=== PATIENT | male | born 1960 | race Caucasian/White ===

== ENCOUNTER 2018-05-21 13:56 | Inpatient (IN) | payer BC, OTHER ==
[2018-05-21] MEDS ORDERED: guaiFENesin SYRUP 100MG/5ML 200 MG/10 ML CUP PO PRN (18:51)
[2018-05-21] MEDS ORDERED: ONDANSETRON 4 MG/2 ML VIAL IVP PRN (18:53)
[2018-05-21] MEDS: BUDESONIDE 0.5 MG/2 ML NEBU INHALATION SCH (19:16)
[2018-05-21] MEDS: IPRATROPIUM-ALBUTEROL 3 ML NEB INHALATION SCH (19:16)
[2018-05-21] MEDS: APIXABAN 5 MG TAB PO SCH ×2 (22:07→22:19)
[2018-05-21] MEDS: METOPROLOL TARTRATE 50 MG TAB PO SCH (22:17)
[2018-05-21] MEDS: BENZONATATE 100 MG CAP PO SCH (22:17)
[2018-05-21] MEDS: MELATONIN 3 MG TABLET PO SCH (22:17)
[2018-05-21] MEDS: AMIODARONE 200 MG TAB PO SCH (22:17)
[2018-05-21] MEDS: NYSTATIN 100,000 UNIT/GM POWD 15 GM TOPICAL SCH (22:19)
[2018-05-21] MEDS: BENZOCAINE/MENTHOL LOZENG 1 EACH LOZENGE MUCOUS MEM PRN (22:20)
[2018-05-21] MEDS: HYDROcodone/APAP 10-325MG 1 EACH TAB PO PRN (22:25)
[2018-05-22] MEDS: APIXABAN 5 MG TAB PO SCH ×3 (04:08→21:28)
[2018-05-22 06:36] LABS: Anion Gap 6 mmol/L; Blood Urea Nitrogen 27 mg/dL (9-20); Calcium 9.3 mg/dL (8.4-10.2); Carbon Dioxide 24 mmol/L (22-30); Chloride 106 mmol/L (98-107); Glucose 92 mg/dL (74-99); Potassium 4.7 mmol/L (3.5-5.1); Sodium 136 mmol/L (137-145)
--- NOTE | 2018-05-22 07:47 | P.HPIM ---
History of Present Illness H&P Date: 05/22/18 Chief Complaint: Syncope with dyspnea. This is a history of physical 57-year-old white male with history of atrial fibrillation with rapid ventricular response. He has history of multiple episodes of syncope several weeks ago. He was admitted for rate control. He's been compliant with most of his medications. He was restarted on amiodarone and was pending discharge when he had a long episode of ventricular tachycardia which has been now paroxysmal. Unfortunate, they have been unable to correct his rate and he is now going to be admitted for probable AICD placement. The patient is otherwise stable. He does have element of urinary retention and UTI and has been on Cipro. No fever or chills. No significant nausea, vomiting or diarrhea stated. No element of diaphoresis is noted. The patient is a former smoker and has element of BPH. Review of Systems Constitutional: Reports fatigue, Denies chills, Denies fever Eyes: denies blurred vision, denies pain Ears, nose, mouth and throat: Denies headache, Denies sore throat Cardiovascular: Reports as per HPI, Reports rapid heart beat Gastrointestinal: Denies abdominal pain, Denies diarrhea, Denies nausea, Denies vomiting Musculoskeletal: Denies myalgias Integumentary: Denies pruritus, Denies rash Neurological: Denies numbness, Denies weakness Endocrine: Denies fatigue, Denies weight change Past Medical History Past Medical History: Atrial Fibrillation, Cancer, Heart Failure, COPD, Hypertension, Osteoarthritis (OA), Prostate Disorder, Sleep Apnea/CPAP/BIPAP, Syncope Additional Past Medical History / Comment(s): 05/21/18 pt wants flu vaccine before going home. pt stated has had a pne vaccine in past but not sure of the date. past episode v-tach, hx rt broken arm-casted. hx prostate cancer- radiation tx,"tremors in hands". History of Any Multi-Drug Resistant Organisms: None Reported Past Surgical History: Heart Catheterization, Hernia Repair, Tonsillectomy Additional Past Surgical History / Comment(s): gopal inguinal hernia repair, cardioversion, prostate bx Past Anesthesia/Blood Transfusion Reactions: No Reported Reaction Past Psychological History: No Psychological Hx Reported Additional Psychological History / Comment(s): lives with . no home care , hasa 02 2 liters n/c, neb, waiting on cpap machine. Smoking Status: Former smoker Past Alcohol Use History: None Reported Additional Past Alcohol Use History / Comment(s): started smoking age 13(1973) quit 2004. smoked 1 ppd Past Drug Use History: None Reported - Past Family History Mother Family Medical History: Cancer Additional Family Medical History / Comment(s): lung /brain Father Family Medical History: Cancer Additional Family Medical History / Comment(s): lung Medications and Allergies Home Medications Medication Instructions Recorded Confirmed Type Albuterol Sulfate [Proair Hfa] 1 - 2 puff INHALATION RT-QID PRN 05/21/18 History Apixaban [Eliquis] 5 mg PO BID 05/21/18 05/21/18 History Budesonide [Pulmicort] 0.5 mg INHALATION RT-BID 05/21/18 05/21/18 History Budesonide/Formoterol Fumarate 2 puff INHALATION RT-BID 05/21/18 05/21/18 History [Symbicort 160-4.5 Mcg Inhaler] Doxazosin Mesylate [Cardura] 8 mg PO DAILY 05/21/18 05/21/18 History Furosemide [Lasix] 40 mg PO BID 05/21/18 05/21/18 History HYDROcodone/APAP 10-325MG [[place] 1 tab PO Q6H PRN 05/21/18 05/21/18 History 10-325] Ipratropium-Albuterol Nebulize 3 ml INHALATION RT-QID PRN 05/21/18 05/21/18 History [Duoneb 0.5 mg-3 mg/3 ml Soln] Lisinopril [Zestril] 5 mg PO DAILY 05/21/18 05/21/18 History Melatonin 6 mg PO HS 05/21/18 05/21/18 History Metoprolol Tartrate [Lopressor] 25 mg PO DAILY 05/21/18 05/21/18 History Potassium Chloride ER [K-Dur 20] 20 meq PO DAILY 05/21/18 05/21/18 History Primidone [Mysoline] 50 mg PO BID 05/21/18 05/21/18 History Tamsulosin HCl [Flomax] 0.4 mg PO HS 05/21/18 05/21/18 History Allergies Allergy/AdvReac Type Severity Reaction Status Date / Time No Known Allergies Allergy Verified 05/21/18 19:50 Physical Exam Vitals: Vital Signs Temp Pulse Pulse Resp BP BP Pulse Ox 05/22/18 03:47 97.8 F 63 18 100/75 94 L 05/22/18 00:00 97.9 F 70 18 104/54 95 05/21/18 20:00 98.4 F 72 18 101/61 94 L 05/21/18 19:30 75 05/21/18 19:16 72 05/21/18 16:15 96.3 F L 95 18 107/61 93 L Intake and Output 05/21/18 05/22/18 05/22/18 22:59 06:59 14:59 Intake Total 50 Balance 50 Intake: Oral 50 Other: Voiding Method Toilet Toilet # Voids 0 3 # Bowel Movements 0 Weight 146.5 kg 145.5 kg - Constitutional General appearance: no acute distress - EENT Eyes: EOMI - Neck Neck: no lymphadenopathy - Respiratory Respiratory: bilateral: CTA - Cardiovascular Rhythm: irregularly irregular Abnormal Heart Sounds: no S4 Gallop - Gastrointestinal General gastrointestinal: soft, no tenderness - Neurologic Neurologic: CNII-XII intact - Psychiatric Psychiatric: A&O x's 3 Results CBC & Chem 7: 05/22/18 05:46 Labs: Abnormal Lab Results - Last 24 Hours (Table) 05/22/18 Range/Units 05:46 Sodium 136 L (137-145) mmol/L BUN 27 H (9-20) mg/dL Thrombosis Risk Factor Assmnt - Choose All That Apply Any of the Below Risk Factors Present?: Yes Each Factor Represents 1 point: Age 41-60 years, Obesity (BMI >25), Swollen legs (current) Other Risk Factors: No Thrombosis Risk Factor Assessment Total Risk Factor Score: 3 Thrombosis Risk Factor Assessment Level: Moderate Risk Assessment and Plan (1) Atrial fibrillation with rapid ventricular response Current Visit: Yes Status: Acute Code(s): I48.91 - UNSPECIFIED ATRIAL FIBRILLATION SNOMED Code(s): 968611605826825 (2) Paroxysmal ventricular tachycardia Current Visit: Yes Status: Acute Code(s): I47.2 - VENTRICULAR TACHYCARDIA SNOMED Code(s): 98526798 (3) Former smoker Current Visit: Yes Status: Acute Code(s): Z87.891 - PERSONAL HISTORY OF NICOTINE DEPENDENCE SNOMED Code(s): 2444268 Plan: The patient is admitted for cardiology service for AICD placement. We'll continue from a medical perspective. The patient is otherwise full code. Dr. Rahman's group will be covering for the weekend. See orders otherwise. Time with Patient: Greater than 30
[2018-05-22] MEDS ORDERED: SODIUM CHLORIDE 0.9% 500 ML 500 ML IV ONE (08:34)
[2018-05-22] MEDS ORDERED: ceFAZolin IN SWFI 2 GM/20 ML SYRINGE IVP ONE (08:40)
[2018-05-22] MEDS ORDERED: ceFAZolin 1,000 MG in SODIUM CHLORIDE 0.9% IRRIGATIO 250 ML IRRIGATION ONE (08:40)
[2018-05-22] MEDS: BUDESONIDE 0.5 MG/2 ML NEBU INHALATION SCH ×2 (08:44→20:42)
[2018-05-22] MEDS: IPRATROPIUM-ALBUTEROL 3 ML NEB INHALATION SCH ×3 (08:45→21:13)
[2018-05-22] MEDS: BENZOCAINE SPRAY 1 CAN MUCOUS MEM ONE ×3 (08:46→08:57)
[2018-05-22] MEDS: fentaNYL (PF) 50 MCG/ML 2 ML AMP IVP ONE ×2 (08:52→08:55)
[2018-05-22] MEDS ORDERED: MIDAZOLAM 2 MG/2 ML VIAL IVP ONE (08:53)
[2018-05-22] MEDS ORDERED: SUCCINYLCHOLINE CHLORIDE VIAL 200 MG/10 ML VIAL IV ONE (09:20)
[2018-05-22] MEDS ORDERED: IV FLUID CONTINUATION 350 ML IV ONE (09:20)
[2018-05-22] MEDS ORDERED: fentaNYL (PF) 50 MCG/ML 2 ML AMP ONE (09:20)
[2018-05-22] MEDS ORDERED: PROPOFOL 10 MG/ML 20 ML VIAL IV ONE (09:20)
[2018-05-22] MEDS ORDERED: MIDAZOLAM 2 MG/2 ML VIAL ONE (09:20)
[2018-05-22] MEDS ORDERED: IOPAMIDOL-250 50ML BTL IV ONE (09:35)
[2018-05-22] MEDS ORDERED: IOPAMIDOL-370 50ML BTL INJ ONE (09:35)
[2018-05-22] MEDS ORDERED: LIDOCAINE 1% INJ 10MG/ML (20 ML MDV) SQ ONE ×3 (10:28→10:34)
[2018-05-22] MEDS ORDERED: ACETAMINOPHEN TAB 325 MG TAB PO PRN (11:55)
--- NOTE | 2018-05-22 12:10 | P.PCN ---
Date of Procedure: 05/22/18 Preoperative Diagnosis: Recurrent syncope and documented fast ventricular tachycardia episodes, CHF Postoperative Diagnosis: The same Description of Procedure: HISTORY: This is a 57-year-old gentleman with history of severe COPD, paroxysmal atrial fibrillation and congestive heart failure who was admitted to the hospital recently with increasing shortness of breath and also episodes of syncope. Patient was being treated with amiodarone along with beta blockers. Patient developed an episode of fast ventricular tachycardia/ventricular flutter associated with symptoms of lightheadedness. Patient was evaluated by would recommend that patient have AICD implantation and also cardiac MRI. Patient and family were explained the risks and benefits of the procedure. Patient already had a SONA examination and was not found to have a clot in the left atrial appendage. CONSENT:I have discussed the risks, benefits and alternative therapies for the above-mentioned procedure and for both sedation/analgesia as well as necessary blood product administration, if indicated, as they pertain to this patient. The patient has indicated understanding and acceptance of the risks and procedures discussed. PROCEDURE: Patient was brought to the lab in a fasting state. Patient was prepped and draped in the usual fashion. Patient was given IV sedation with fentanyl and Versed. The skin below the left clavicle was infiltrated with lidocaine. An incision was made parallel to deltopectoral groove was deepened until the pectoral fascia was exposed. A pocket was created by blunt dissection and cautery. Axillary venography was performed to delineate the course of the axillary vein. A single stick were performed into extrathoracic portion of the axillary vein and a single sheaths was advanced over the guidewires and left in subclavian vein. Conscious Sedation: This is provided by department of anesthesia. Patient became short of breath because of his COPD and obesity and congestive heart failure. It was decided to intubate the patient electively. This was managed by department of anesthesia. Duration 79 minutes minutes LEADS: VENTRICULAR: This is manufactured by [employer]. Model number is [id number]. The serial number is [id number]. He and the ventricular lead was then advanced through the sheath into the superior vena cava. The ventricular lead is maneuvered l with help of a straight and curved stylets into the left ventricle apical septal. region. Multiple sites were checked before findings satisfactory location. Satisfactory position was obtained and threshold measurements were made. . THRESHOLDS: VENTRICLE: The minimum patient threshold was 0.75 V at a pulse width of 0.4 ms with impedance of 589 ohms R-wave: 12.6. THE SHOCK IMPEDANCE: 86 The ventricular lead is then connected to the generator. The leads and pulse generator remained in the pocket after it was washed with antibiotics. Pocket was closed in the usual fashion. The fascia was closed with 2-0 Prolene ,the subcutaneous tissue was closed with 3-0 Prolene and the skin was closed with 4-0 Prolene. PROGRAMMING: Estela therapy: MODE: VVI RATE: Be OUTPUT: Ventricle: 3.5 V Tachycardia therapy: VF zone: This is programmed to a rate of 200. Initial detection is 30 out of 40 and radiated to his 12 out of 16. Therapies are programmed to 25 J followed by 356. VT zone: Programmed to a rate of 167. Therapies are programmed to burst pacing followed by ramp pacing. Followed by cardioversion with 24 J followed by 353. FINAL IMPRESSION: #1 axillary venography #2 successful implantation of single- chamber AICD COMPLICATIONS: None PLAN: Continue current medical therapy. Patient will be monitored on the telemetry unit. Prophylactic antibiotic was continued. Chest x-ray in the morning. Further recommendations to follow.
--- NOTE | 2018-05-22 13:31 | P.TEE ---
Indications for Procedure(s): Rule out clot in the left atrial appendage. Patient is in atrial fibrillation. Going for AICD implantation and possible cardioversion. Date of Procedure: 05/22/18 Preoperative Diagnosis: Atrial fibrillation, CHF and ventricular tachycardia Postoperative Diagnosis: No evidence of clot in left atrial appendage Description of Procedure(s): INDICATION: Rule out clot left atrial appendage CONSENT:. Informed consent was obtained from the patient verbally PROCEDURE: Patient was brought to the lab in a fasting state. Throat was sprayed with Cetacaine. Patient was given IV sedation with Versed and fentanyl. A lubricated Omni probe was introduced into the oropharynx. Multiple views were obtained from both stomach and esophagus. No complications FINDINGS:. The aorta appeared to be normal in size. The aortic valve is normal and functioning normally. Mitral valve appeared to be normal with moderate regurgitation. Tricuspid valve showed moderate regurgitation. Left atrial appendage appeared to be free of any clot. The interatrial septum showed extra motion suggestive of aneurysm formation. No PFO is noted. Injection of the saline contrast bubbles did not show any crossing of the bubbles across the septum. Left ankle function appear to be fair. Left atrium appear to be enlarged IMPRESSION: #1. Left atrial enlargement #2. Left atrial appendage is free of any clot. #3. No PFO #5. Aneurysmal interatrial septum . #6. Moderate mitral regurgitation. #7. Moderate dysplasia regurgitation . #8. Left ventricular function appeared to be needed normal PLAN: proceed with AICD implantation and possible cardioversion.
[2018-05-22] MEDS: TAMSULOSIN 0.4 MG CAP.ER.24H PO SCH (16:28)
[2018-05-22] MEDS: AMIODARONE 200 MG TAB PO SCH ×2 (16:29→23:32)
[2018-05-22] MEDS: BENZONATATE 100 MG CAP PO SCH ×3 (16:29→21:29)
[2018-05-22] MEDS: METOPROLOL TARTRATE 50 MG TAB PO SCH ×3 (16:30→23:33)
[2018-05-22] MEDS: FUROSEMIDE 20 MG TAB PO SCH (16:31)
[2018-05-22] MEDS: NYSTATIN 100,000 UNIT/GM POWD 15 GM TOPICAL SCH ×2 (16:34→21:29)
[2018-05-22] MEDS: ceFAZolin IN SWFI 2 GM/20 ML SYRINGE IVP SCH ×2 (16:54→23:33)
[2018-05-22] MEDS: HYDROcodone/APAP 10-325MG 1 EACH TAB PO PRN (21:29)
[2018-05-22] MEDS: MELATONIN 3 MG TABLET PO SCH (21:29)
[2018-05-22] MEDS: BENZOCAINE/MENTHOL LOZENG 1 EACH LOZENGE MUCOUS MEM PRN (21:30)
[2018-05-23] MEDS: MELATONIN 3 MG TABLET PO SCH (01:47)
[2018-05-23] MEDS: ceFAZolin IN SWFI 2 GM/20 ML SYRINGE IVP SCH ×2 (04:08→10:14)
--- NOTE | 2018-05-23 06:51 | XR ---
EXAMINATION TYPE: XR chest 2V DATE OF EXAM: 05/23/2018 HISTORY: Lead placement check. REFERENCE: NONE. FINDINGS: A unipolar pacemaker is in place via left subclavian approach. Its tip overlies the right v entricle. The heart is enlarged. There is mild vascular congestion and interstitial change. I could not exclude small effusions. IMPRESSION: 1. SATISFACTORY PACEMAKER PLACEMENT. 2. FINDINGS CONSISTENT WITH MILD CONGESTIVE HEART FAILURE. 3. I COULD NOT EXCLUDE SMALL, BILATERAL EFFUSIONS.
[2018-05-23] MEDS: IPRATROPIUM-ALBUTEROL 3 ML NEB INHALATION SCH (07:34)
[2018-05-23] MEDS: BUDESONIDE 0.5 MG/2 ML NEBU INHALATION SCH (07:34)
[2018-05-23] MEDS: HYDROcodone/APAP 10-325MG 1 EACH TAB PO PRN (08:42)
[2018-05-23] MEDS: APIXABAN 5 MG TAB PO SCH (08:48)
[2018-05-23] MEDS: METOPROLOL TARTRATE 50 MG TAB PO SCH (08:48)
[2018-05-23] MEDS: AMIODARONE 200 MG TAB PO SCH (08:48)
[2018-05-23] MEDS: FUROSEMIDE 20 MG TAB PO SCH (08:49)
[2018-05-23] MEDS: NYSTATIN 100,000 UNIT/GM POWD 15 GM TOPICAL SCH (08:49)
[2018-05-23] MEDS: BENZONATATE 100 MG CAP PO SCH (08:49)
[2018-05-23] MEDS: TAMSULOSIN 0.4 MG CAP.ER.24H PO SCH (08:49)
[2018-05-23 09:05] VITALS: RESP 16; TEMP 98
--- NOTE | 2018-05-23 10:12 | P.PN ---
Subjective Progress Note Date: 05/23/18 This is a pleasant 57-year-old gentleman with known paroxysmal atrial fibrillation who presented [facility] with shortness of breath. The patient developed episodes of ventricular tachycardia. He underwent a heart catheterization and that revealed normal coronaries. Subsequently he was transferred to [facility] where he underwent single-chamber pacemaker implantation by Dr. Tariq yesterday. The chest x-ray from today did not show any acute finding. The patient denies having any chest pain or discomfort but he still have mild bilateral lower extremities edema. He continues to be in atrial fibrillation with controlled heart rates. Objective - Vital Signs Vital signs: Vital Signs Temp 98 F 05/23/18 08:57 Pulse 80 05/23/18 08:57 Resp 16 05/23/18 08:57 BP 109/69 05/23/18 08:57 Pulse Ox 92 L 05/23/18 08:57 Intake & Output 05/22/18 05/23/18 05/23/18 18:59 06:59 18:59 Intake Total 444 Output Total 100 300 Balance 344 -300 Weight 146.7 kg Intake: Intake, IV Titration 0 Amount Sodium Chloride 0.9% 500 0 ml @ 0 mls/hr IV .[facility] Rx#:[id number] Oral 444 Output: Urine 100 300 Other: Voiding Method Urinal Urinal # Voids 1 # Bowel Movements 0 - Constitutional General appearance: Present: no acute distress - Respiratory Respiratory: bilateral: diminished - Cardiovascular Rhythm: regular Heart sounds: normal: S1, S2 - Labs CBC & Chem 7: 05/22/18 05:46 Assessment and Plan Assessment: Assessment #1 status post single-chamber AICD #2 atrial fibrillation was controlled heart rate Plan #1 from the cardiac vascular standpoint of view, the patient can be discharged home
[2018-05-23 11:19] LABS: Glucose,Whole Blood 116 mg/dL (75-99)
[2018-05-23 12:31] VITALS: PULSE 63
[2018-05-23 12:51] VITALS: BP 103/64
--- NOTE | 2018-05-23 14:47 | P.DS ---
Providers Date of admission: 05/21/18 16:36 Attending physician: Luciano Reed Consults: 05/21/18 18:53 Consult Physician Routine Consulting Provider: Rafael Tariq Consult Reason/Comments: transfer for planned procedure Do you want consulting provider notified?: Already Contacted Primary care physician: Stated None Hospital Course: On-call hospitalist covering for Dr. Reed over the weekend This is a pleasant 57 years old male with past medical history of atrial fibrillation, heart failure, COPD, obstructive sleep apnea, hypertension, degenerative joint disease, prostate disorder, who was admitted to [facility] and transferred from [facility] for syncope/near syncope , related to paroxysmal ventricular tachycardia when he was treated in a stabilized first in the ICU at [facility]. The patient underwent a heart catheterization and that revealed normal coronaries. Subsequently he was transferred to [facility] where he underwent single-chamber pacemaker implantation by Dr. Tariq yesterday. The chest x-ray from today did not show any acute finding. He felt some generalized weakness and home health care has been set up for him. As his been evaluated by physical therapy at [facility] and they recommended home PT. Last chest pain. No dyspnea. He has mild leg swelling on both sides. He used to be on Lasix 40 mg twice a day, currently, lowered to 20 mg daily on discharge he had also patient was started on amiodarone and increase his Lopressor dose to 50 mg 3 times a day. Patient and family at bedside is made aware of these changes and they agree. Patient Is already on Eliquis and he is telling me he has the medication at home. Patient hospital course at [facility] was completely gated by UTI and left superficial thrombophlebitis of the left forearm, which was treated with antibiotic and conservatively on that result. On the day of discharge patient denies to me any urinary signs and symptoms On his left forearm thrombophlebitis completely resolved. Patient has been cleared by cardiology for discharge Management plan for his problems were discussed with the patient and he agrees verbalized understanding and acceptance Patient was found stable and he can be discharged home and guarded prognosis with recommendation to follow up as an outpatient. Patient agrees with the appointment time and place for the cardiology office. He agrees to make his appointments with Dr. Reed and pulmonary in one week as recommended physical exam Gen.: Patient alert awake and oriented X 3, NOT IN DISTRESS CVS: s1-s2, RRR, no murmur CHEST:bilateral CTA, no wheezing or crepitation Abdomen: Soft, no tenderness, no distention, positive bowel sounds Extremities: No leg edema or induration, left forearm in a sling, wound is healed. left forearm thrombophlebitis: Resolved Time spent more than 55 minutes Plan - Discharge Summary Discharge Rx Participant: Yes New Discharge Prescriptions: New Acetaminophen Tab [Tylenol] 650 mg PO Q6HR PRN tab PRN Reason: Mild Pain Amiodarone [Cordarone] 400 mg PO BID #120 tab Furosemide [Lasix] 20 mg PO DAILY #30 tab Metoprolol Tartrate [Lopressor] 50 mg PO TID #90 tab Tamsulosin [Flomax] 0.4 mg PO PC-BRKFST #30 cap.er.24h Continue Melatonin 6 mg PO HS Ipratropium-Albuterol Nebulize [Duoneb 0.5 mg-3 mg/3 ml Soln] 3 ml INHALATION RT-QID PRN PRN Reason: Shortness Of Breath Doxazosin Mesylate [Cardura] 8 mg PO DAILY Budesonide [Pulmicort] 0.5 mg INHALATION RT-BID Primidone [Mysoline] 50 mg PO BID Metoprolol Tartrate [Lopressor] 25 mg PO DAILY Lisinopril [Zestril] 5 mg PO DAILY Budesonide/Formoterol Fumarate [Symbicort 160-4.5 Mcg Inhaler] 2 puff INHALATION RT-BID Apixaban [Eliquis] 5 mg PO BID Albuterol Sulfate [Proair Hfa] 1 - 2 puff INHALATION RT-QID PRN PRN Reason: Shortness Of Breath HYDROcodone/APAP 10-325MG [[place] 10-325] 1 tab PO Q6H PRN PRN Reason: Pain Tamsulosin HCl [Flomax] 0.4 mg PO HS Discontinued Furosemide [Lasix] 40 mg PO BID Potassium Chloride ER [K-Dur 20] 20 meq PO DAILY Discharge Medication List Albuterol Sulfate [Proair Hfa] 1 - 2 puff INHALATION RT-QID PRN 05/21/18 [ History] Apixaban [Eliquis] 5 mg PO BID 05/21/18 [History] Budesonide [Pulmicort] 0.5 mg INHALATION RT-BID 05/21/18 [History] Budesonide/Formoterol Fumarate [Symbicort 160-4.5 Mcg Inhaler] 2 puff INHALATION RT-BID 05/21/18 [History] Doxazosin Mesylate [Cardura] 8 mg PO DAILY 05/21/18 [History] HYDROcodone/APAP 10-325MG [[place] 10-325] 1 tab PO Q6H PRN 05/21/18 [History] Ipratropium-Albuterol Nebulize [Duoneb 0.5 mg-3 mg/3 ml Soln] 3 ml INHALATION RT -QID PRN 05/21/18 [History] Lisinopril [Zestril] 5 mg PO DAILY 05/21/18 [History] Melatonin 6 mg PO HS 05/21/18 [History] Metoprolol Tartrate [Lopressor] 25 mg PO DAILY 05/21/18 [History] Primidone [Mysoline] 50 mg PO BID 05/21/18 [History] Tamsulosin HCl [Flomax] 0.4 mg PO HS 05/21/18 [History] Acetaminophen Tab [Tylenol] 650 mg PO Q6HR PRN tab 05/23/18 [Rx] Amiodarone [Cordarone] 400 mg PO BID #120 tab 05/23/18 [Rx] Furosemide [Lasix] 20 mg PO DAILY #30 tab 05/23/18 [Rx] Metoprolol Tartrate [Lopressor] 50 mg PO TID #90 tab 05/23/18 [Rx] Tamsulosin [Flomax] 0.4 mg PO PC-BRKFST #30 cap.er.24h 05/23/18 [Rx] Follow up Appointment(s)/Referral(s): Luciano Reed MD [STAFF PHYSICIAN] - 3 Days Yash Ortega MD [STAFF PHYSICIAN] - 1 Week (ostructive sleep apnea ) Arcadio Fowler MD [STAFF PHYSICIAN] - 05/28/18 10:30 am (Device Clinic and Office Visit) Patient Instructions/Handouts: Transesophageal Echocardiogram (DC), Implantable Cardioverter Defibrillator (DC), Pacemaker (DC) Activity/Diet/Wound Care/Special Instructions: Cardiac diet, with fluid restriction 1500 mL per day Activity is limited till you see your doctor Discharge Disposition: HOME WITH HOME HEALTH SERVICES
--- NOTE | 2018-05-26 10:46 | CDI ---
Last Revision, July 2017 Documentation Clarification Form Date: 05/26/18 From: Hanna Saunders Phone: If you have a question , please contact Evelina Marie at [phone] between 8am and 5pm. Admit Date: 05/21/2018 4:36:00 PM Patient Name: Wesly Bain Visit Number: [id number] Discharge Date: 05/23/18 ATTENTION: The Clinical Documentation Specialists (CDI) and [facility] Coding Staff appreciate your assistance in clarifying documentation. Please respond to the clarification below the line at the bottom and electronically sign. The CDI & [facility] Coding staff will review the response and follow-up if needed. Please note: Queries are made part of the Legal Health Record. If you have any questions, please contact the author of this message via ITS. Dr. DUPONT, Heart failure is documented in the H&P, discharge summary and procedure note. History/Risk Factors: The patient was admitted for AICD placement due to V- tach. The patient also has a history of paroxysmal a-fib, hypertension, obstructive sleep apnea and morbid obesity. Clinical Indicators: Patient became short of breath after admission otherwise no symptoms. VS/Pulse OX: T. 96.3, P. 95, R. 18, BP 107/61, Pulse Ox. 93 BNP: Not tested. Chest X Ray: Findings consistent with mild congestive heart failure. I could not exclude small, bilateral effusions. Treatment: Lasix 20 mg PO In your professional opinion, can you please clarify the acuity and type of CHF if known? Systolic Heart Failure: Acute Chronic Acute on Chronic Diastolic Heart Failure: Acute Chronic Acute on Chronic Systolic & Diastolic Heart Failure: Acute Chronic Acute on Chronic Heart Failure Unable to Determine Other, please specify MTDD
== END 2018-05-23 16:01 | disposition home health service (06) | DRG 227 ==
LOC: 6SEL 16:36
PROVIDERS: ADMIT Family Medicine; ATTEND Family Medicine
PROC: 02HL3KZ Insertion of Defibrillator Lead into Left Ventricle, Percutaneous Approach (ICD-10-PCS; 2018-05-22)
PROC: B24BZZ4 Ultrasonography of Heart with Aorta, Transesophageal (ICD-10-PCS; 2018-05-22)
PROC: 0JH608Z Insertion of Defibrillator Generator into Chest Subcutaneous Tissue and Fascia, Open Approach (ICD-10-PCS; principal; 2018-05-22 08:30)
DX: I47.2 Ventricular tachycardia (principal); N39.0 Urinary tract infection, site not specified; Z68.42 Body mass index [BMI] 45.0-49.9, adult; G47.33 Obstructive sleep apnea (adult) (pediatric); I11.0 Hypertensive heart disease with heart failure; I48.0 Paroxysmal atrial fibrillation; J44.9 Chronic obstructive pulmonary disease, unspecified; N40.0 Benign prostatic hyperplasia without lower urinary tract symptoms; M19.90 Unspecified osteoarthritis, unspecified site; E66.01 Morbid (severe) obesity due to excess calories; Z79.01 Long term (current) use of anticoagulants; Z79.51 Long term (current) use of inhaled steroids; Z79.899 Other long term (current) drug therapy; Z85.46 Personal history of malignant neoplasm of prostate; Z99.81 Dependence on supplemental oxygen; Z87.891 Personal history of nicotine dependence; Z92.3 Personal history of irradiation; I50.9 Heart failure, unspecified
CPT/HCPCS: 33249; 71046; 80048; 93312; 93320; 93325; 94640

== ENCOUNTER → 2019-03-25 | Outpatient (CLI) | payer OTHER ==
--- NOTE | 2019-03-26 10:22 | CTL ---
EXAMINATION TYPE: CT Low Dose Lung DATE OF EXAM ORDERED: 03/25/2019 HISTORY: Personal history of tobacco abuse. Lung cancer screening CT DLP: 93.[address] CTDI: 2.6 mGy Automated exposure control for dose reduction was used. SCREENING VISIT: Initial COMPARISON: None TECHNIQUE: Low dose computed tomography scan was performed through the chest at 1 mm thick sections a nd reconstructed images in the coronal plane at [address] DIAGNOSTIC QUALITY: Limited, but interpretable FINDINGS: LUNG NODULES: Present, detailed below: There is a 4 mm solid pulmonary nodule on series 4 image 81 in the anterolateral right upper lobe. There is a 5 mm solid nodule on series 4 image 88 in the posterior right upper lobe. There is a 4 mm right midlung pulmonary nodule abutting the interlobar fissure on series 4 image 149 and is also solid in nature. There is a 5 mm pulmonary nodule in the right middle lobe on series 4 image 165. There is a 7 mm solid pulmonary nodule in the right lower lobe along the peripheral margin near the i nterlobar fissure on series 4 image 200. This is subpleural in location. There is a questionable punctate right apical pulmonary nodule adjacent to a pulmonary vessel mediall y of the right lung apex on image 53 of series 4 that also appears solid in nature. On the left there is a 4 mm solid pulmonary nodule in the apex on series 4 image 51. There is another left upper lobe 4 mm pulmonary nodule on series 4 image 101 anteriorly. LUNGS: COPD: Severity: Mild centrilobular Fibrosis: Severity: None Lymph nodes: Nonenlarged Other findings: Bibasilar subsegmental atelectasis. RIGHT PLEURAL SPACE: Effusion: None Calcification: None Thickening: None Pneumothorax: None LEFT PLEURAL SPACE: Effusion: None Calcification: None Thickening: None Pneumothorax: None HEART: Heart Size: Mildly enlarged with left-sided cardiac device Coronary calcification: Few punctate Pericardial effusion: Trace OTHER FINDINGS: Upper abdomen: Nondiagnostic imaging of the upper abdomen due to motion and body habitus as well as t echnique. Bony thorax: Moderate degenerative changes of the thoracic spine. Nearly nondiagnostic. Supraclavicular region: Thyroid gland appears enlarged with substernal extent of the right lobe of th e thyroid. Thyroid ultrasound could be considered. Other: There is bilateral moderate appearing partially visualized probable retroareolar gynecomastia. IMPRESSION: 1. Lung RADS 3-probably benign. 6 month follow-up low dose CT is recommended. There are bilateral orlin id nodules measuring up to 7 mm in the right lower lobe. If there is interval growth in [address] or percutaneous biopsy could be considered. 2. Enlarged thyroid gland for which thyroid ultrasound could be considered. 3. Partially visualized probable moderate bilateral retroareolar gynecomastia. 4. Mild centrilobular emphysema. 5. Nondiagnostic imaging of the upper abdomen. FOLLOW UP CT CHEST RECOMMENDATION: Six-month follow-up low dose CT CT LUNG RAD: 2
== END | disposition home or self-care (01) ==
LOC: RADCTMAIN 15:39
PROVIDERS: ATTEND Family Medicine
DX: Z12.2 Encounter for screening for malignant neoplasm of respiratory organs (principal); J43.2 Centrilobular emphysema; R91.1 Solitary pulmonary nodule; F17.210 Nicotine dependence, cigarettes, uncomplicated

== ENCOUNTER → 2019-04-28 | Outpatient (CLI) | payer OTHER ==
--- NOTE | 2019-04-29 08:56 | US ---
EXAMINATION TYPE: US thyroid st tissue head/neck DATE OF EXAM: 04/28/2019 COMPARISON: CT 2019 CLINICAL HISTORY: Enlarged thyroid E04.9. Enlarged thyroid seen on recent CT GLAND SIZE: Right Lobe: 5.0 x 2.8 x 2.3 cm Overall Parenchyma: heterogenous Left Lobe: 5.7 x 2.6 x 2.3 cm Overall Parenchyma: heterogeneous Isthmus Thickness: 0.6 cm NODULES RIGHT: # of nodules measured on right: 0 LEFT: # of nodules measured on left: 0 ISTHMUS: # of nodules measured in the isthmus: 0 Difficult and limited study due to patient body habitus and heavy breathing. Bilateral neck scanned, no evidence of lymphadenopathy. IMPRESSION: Mildly enlarged heterogeneous gland without any definite nodules seen at this time.
== END | disposition home or self-care (01) ==
LOC: RADUSWWP 15:44
PROVIDERS: ATTEND Family Medicine
DX: E04.9 Nontoxic goiter, unspecified (principal)
CPT/HCPCS: 76536

== ENCOUNTER → 2019-05-17 | Outpatient (CLI) | payer OTHER ==
[2019-05-17 20:10] LABS: African American GFR (CKD) 69.2 (60.0-200.0); Anion Gap 11.4 mmol/L (4.00-12.00); BUN/Creat Ratio 20.77 Ratio (12.00-20.00); Calcium 8.8 mg/dL (8.7-10.3); Carbon Dioxide 30.6 mmol/L (21.6-31.8); Potassium 4.7 mmol/L (3.5-5.5)
== END | disposition home or self-care (01) ==
LOC: LABWHC1 14:58
PROVIDERS: ATTEND Internal Medicine Cardiovascular Disease
DX: I47.2 Ventricular tachycardia (principal)
CPT/HCPCS: 36415; 80048

== ENCOUNTER → 2019-10-12 | Outpatient (CLI) | payer OTHER ==
[2019-10-12 17:48] LABS: Basophils % (A) 1 %; Eosinophils # (A) 0.3 k/uL (0-0.7); Eosinophils % (A) 3 %; HCT 41.3 % (39.0-53.0); HGB 13.6 gm/dL (13.0-17.5); Lymphocytes # (A) 0.4 k/uL (1.0-4.8); Lymphocytes % (A) 5 %; MCH 31.3 pg (25.0-35.0); MCV 94.9 fL (80.0-100.0); Mean Platelet Volume 10.5; Monocytes # (A) 0.7 k/uL (0-1.0); Monocytes % (A) 8 %; Neutrophils # (A) 6.8 k/uL (1.3-7.7); Neutrophils % (A) 81 %; Platelet Count 184 k/uL (150-450); RBC 4.35 m/uL (4.30-5.90); RDW 13.4 % (11.5-15.5); WBC 8.4 k/uL (3.8-10.6)
[2019-10-12 20:04] LABS: Erythrocyte Sedimentation Rate 76 mm/hr (0-15)
[2019-10-13 00:50] LABS: African American GFR (CKD) 68.7 (60.0-200.0); Albumin 3.4 g/dL (3.80-4.90); Albumin/Globulin Ratio 0.85 (1.60-3.17); Anion Gap 7.5 mmol/L (4.00-12.00); BUN/Creat Ratio 17.69 Ratio (12.00-20.00); C Reactive Protein 5.7 mg/dL (0.0-0.8); Calcium 8.3 mg/dL (8.7-10.3); Carbon Dioxide 33.5 mmol/L (21.6-31.8); Chol/HDL Ratio 4.48; LDL Cholesterol,Calculated 61.2 mg/dL (0.0-131.0); Magnesium 1.6 mg/dL (1.5-2.4); Non-African American GFR(CKD) 59.3 (60.0-200.0); Potassium 4.1 mmol/L (3.5-5.5); Total Bilirubin 0.5 mg/dL (0.3-1.2); Total Protein 7.4 g/dL (6.2-8.2); VLDL Calculation 18.8 mg/dL (5.00-40.00)
[2019-10-13 00:55] LABS: Uric Acid 5.9 mg/dL (3.7-8.7)
[2019-10-13 01:04] LABS: T4, Free (Free Thyroxine) 1.5 ng/dL (0.80-1.80)
[2019-10-13 01:05] LABS: Hepatitis A Antibody IgM Non-Reactive (Non-Reactive); Hepatitis B Core IgM Non-Reactive (Non-Reactive); Hepatitis B Surface Antigen Non-Reactive (Non-Reactive); Hepatitis C IgG Antibody Non-Reactive (Non-Reactive)
[2019-10-13 02:00] LABS: Hemoglobin A1C 9.1 % (4.0-6.0)
[2019-10-13 07:23] LABS: Anti-DNA, DS unit <1.0 IU/mL; DNA Double-Stranded NEGATIVE (NEGATIVE)
== END | disposition home or self-care (01) ==
LOC: LABWHC1 17:03
PROVIDERS: ATTEND Internal Medicine Cardiovascular Disease
DX: D64.9 Anemia, unspecified (principal); N40.0 Benign prostatic hyperplasia without lower urinary tract symptoms; J44.9 Chronic obstructive pulmonary disease, unspecified; N39.0 Urinary tract infection, site not specified; E66.9 Obesity, unspecified; E78.5 Hyperlipidemia, unspecified; E21.3 Hyperparathyroidism, unspecified; E11.65 Type 2 diabetes mellitus with hyperglycemia; E03.9 Hypothyroidism, unspecified; N18.3 Chronic kidney disease, stage 3 (moderate); M81.0 Age-related osteoporosis without current pathological fracture; R80.9 Proteinuria, unspecified; C61 Malignant neoplasm of prostate; D72.829 Elevated white blood cell count, unspecified; M35.9 Systemic involvement of connective tissue, unspecified; I95.9 Hypotension, unspecified
CPT/HCPCS: 36415; 80053; 80061; 80074; 82306; 82550; 83036; 83735; 83880; 83970; 84100; 84153; 84439; 84443; 84550; 85025; 85652; 86038; 86140; 86225

== ENCOUNTER → 2020-09-25 | Outpatient (CLI) | payer MEDICARE, OTHER ==
[2020-09-25 23:12] LABS: C Reactive Protein 4.6 mg/dL (0.0-0.8)
[2020-09-26 04:38] LABS: Hepatitis A Antibody IgM Non-Reactive (Non-Reactive); Hepatitis B Core IgM Non-Reactive (Non-Reactive); Hepatitis B Surface Antigen Non-Reactive (Non-Reactive); Hepatitis C IgG Antibody Non-Reactive (Non-Reactive)
[2020-09-26 09:31] LABS: Angiotensin-1 Converting Enz. 29 U/L (8-52)
[2020-09-26 14:03] LABS: C-ANCA <1:20 Titer (<1:20)
[2020-09-26 15:31] LABS: HLA B27 NEGATIVE
== END | disposition home or self-care (01) ==
LOC: LABWHC1 10:56
PROVIDERS: ATTEND Ophthalmology
DX: H20.9 Unspecified iridocyclitis (principal)
CPT/HCPCS: 36415; 82164; 85549; 85652; 86038; 86039; 86140; 86255; 86431; 86780; 86812

== ENCOUNTER → 2023-03-28 | Outpatient (CLI) | payer MEDICARE ==
[2023-03-28 16:16] LABS: ALT 19 U/L (4-49); AST 25 U/L (17-59); African American GFR (CKD) >90 (>60 ml/min/1.73 sqM); Albumin 3.1 g/dL (3.5-5.0); Albumin/Globulin Ratio 0.8; Alkaline Phosphatase 75 U/L (38-126); Anion Gap 5 mmol/L; Blood Urea Nitrogen 16 mg/dL (9-20); Calcium 8.6 mg/dL (8.4-10.2); Carbon Dioxide 33 mmol/L (22-30); Chloride 97 mmol/L (98-107); Globulin 4.1 g/dL; Glucose 89 mg/dL (74-99); Non-African American GFR(CKD) >90 (>60 ml/min/1.73 sqM); Sodium 135 mmol/L (137-145); Total Bilirubin 0.9 mg/dL (0.2-1.3); Total Protein 7.2 g/dL (6.3-8.2)
[2023-03-28 16:24] LABS: NT-Pro-B-Type Natriuretic Pept 1520 pg/mL
[2023-03-28 16:32] LABS: T4, Free (Free Thyroxine) 1.89 ng/dL (0.78-2.19)
[2023-03-29 01:57] LABS: HCT 39.9 % (39.6-50.0); MCH 29.2 pg (27.0-32.0); MCHC 30.1 d/dL (32.0-37.0); MCV 97.1 FL (80.0-97.0); NRBC Per 100 WBC 0 X 10*3/uL (0.00-0.01); Platelet Count 290 X 10*3/uL (140-440); RBC 4.11 X 10*6/uL (4.40-5.60); RDW 14.5 % (11.5-14.5); WBC 10.52 X 10*3/uL (4.50-10.00)
== END | disposition home or self-care (01) ==
LOC: LABWHC1 14:55
PROVIDERS: ATTEND Family Medicine
DX: R14.0 Abdominal distension (gaseous) (principal); R60.0 Localized edema
CPT/HCPCS: 36415; 80053; 83880; 84439; 84443; 85027